=== PATIENT | female | born 1970 | race Caucasian/White ===

== ENCOUNTER 2022-09-08 08:29 | Emergency (ER) | payer MEDICAID ==
[~2022-09-08] VITALS: Ht 185.4 cm; Wt 117.0 kg
[2022-09-08 08:38] VITALS: BP 157/98
--- NOTE | 2022-09-08 08:52 | NUR ---
C/O LEFT KNEE [id number] S/P FALL ON FRIDAY. AMBULATORY WITH PAIN. TOOK TYLENOL AND MOTRIN FOR PAIN WITH MODERATE RELIEF. DENIES NEW ONSET PAIN IN THE RIGHT KNEE HOWEVER PT STATES THAT SHE FELL ON BOTH KNEES, DENIES LOC, DENIES HITTING HEAD ALLERGY: SULFA PMH: HTN
--- NOTE | 2022-09-08 09:02 | NUR ---
TAKEN TO RAD VIA WC
[2022-09-08] MEDS ORDERED: CYCL-711 PO (10:34)
--- NOTE | 2022-09-08 10:40 | NUR ---
Patient discharged with v/s stable. Written and verbal after care instructions ABOUT KNEE SPRAIN given and explained. Patient alert, oriented and verbalized understanding of instructions. Ambulatory with steady gait. All questions addressed prior to discharge. ID band removed. Patient advised to follow up with PMD. Rx of FLEXERIL given. Patient educated on indication of medication including possible reaction and side effects. Opportunity to ask questions provided and answered.
== END 2022-09-08 10:40 | disposition home or self-care (01) ==
LOC: MED 08:29
DX: S83.92XA Sprain of unspecified site of left knee, initial encounter (principal); S83.91XA Sprain of unspecified site of right knee, initial encounter; I10 Essential (primary) hypertension; Z88.2 Allergy status to sulfonamides; Z79.899 Other long term (current) drug therapy; W01.0XXA Fall on same level from slipping, tripping and stumbling without subsequent striking against object, initial encounter; Y93.01 Activity, walking, marching and hiking; Y92.89 Other specified places as the place of occurrence of the external cause; Y99.8 Other external cause status
CPT/HCPCS: 73562; 99283